=== PATIENT | female | born 1950 | race Caucasian/White ===

== ENCOUNTER 2016-09-10 10:02 | Emergency (ER) | payer OTHER, MEDICARE ==
[2016-09-10 10:10] VITALS: BMI 29.2
--- NOTE | 2016-09-10 10:11 | ED PDOC ---
Arrival/HPI - General Chief Complaint: Lower Extremity Problem/Injury Time Seen by Provider: 09/10/16 10:10 Historian: Patient - History of Present Illness Narrative History of Present Illness (Text): 09/10/16 10:10 66 y/o female, pmh including htn/hyperlipidemia/dm, nkda, last tetanus over 10 years ago, c/o lt. foot big toe pain x 1 day. Pt. stated that she has no fall or trauma, feels like the blister is popped on the toe, very minimal pain, not sure last [id number], from [place], no night sweat, no calf pain, no numbness or tingling, no thigh pain, no palpitation, no other medical or psychological complaints. Past Medical History - Provider Review Nursing Documentation Reviewed: Yes - Travel History If Yes, travel location?: [facility] - Infectious Disease Hx of Infectious Diseases: None - Tetanus Immunization Tetanus Immunization: Unknown - Reproductive Menopause: Yes - Cardiac Hx Hypertension: Yes - Pulmonary Hx Respiratory Disorders: No - Neurological Hx Neurological Disorder: No - Renal Hx Renal Disorder: No - Endocrine/Metabolic Hx Diabetes Mellitus Type 2: Yes - Hematological/Oncological Other/Comment: Hx of blood transfusion during one of the pregnancies. - Integumentary Hx Dermatological Disorder: No - Musculoskeletal/Rheumatological Hx Arthritis: Yes (knees,ankles.) Hx Fractures: Yes (Left ankle.) - Gastrointestinal Hx Gastrointestinal Disorders: No - Psychiatric Hx Psychophysiologic Disorder: No Hx Anxiety: No Hx Bipolar Disorder: No Hx Depression: No Hx Emotional Abuse: No Hx Hallucinations: No Hx Panic Disorder: No Hx Post Traumatic Stress Disorder: No Hx Psychosis: No Hx Physical Abuse: No Hx Schizophrenia: No Hx Sexual Abuse: No Hx Substance Use: No - Past Surgical History Past Surgical History: No Previous - Surgical History Hx Tubal Ligation: Yes (35 yrs ago.) - Anesthesia Hx Anesthesia: No Hx Anesthesia Reactions: No Hx Malignant Hyperthermia: No - Suicidal Assessment Feels Threatened In Home Enviroment: No Family/Social History - Physician Review Nursing Documentation Reviewed: Yes Family/Social History: Unknown Family HX Smoking Status: Never Smoked Hx Alcohol Use: No Hx Substance Use: No Hx Substance Use Treatment: No Allergies/Home Meds Allergies/Adverse Reactions: Allergies No Known Allergies Allergy (Verified 09/10/16 10:09) Home Medications: Home Meds Medication Instructions Recorded Confirmed Glipizide/Metformin HCl 1 tab PO BID 08/04/13 09/10/16 [Glipizide/Metformin HCl 2.5 mg-500 mg] Metoprolol Succinate 50 mg PO BID 08/04/13 09/10/16 Atorvastatin [Lipitor] 40 mg PO DAILY 05/11/14 09/10/16 Lisinopril [Zestril] 5 mg PO DAILY 09/10/16 09/10/16 Pioglitazone [Actos] 30 mg PO DAILY 09/10/16 09/10/16 Review of Systems - Review of Systems Constitutional: absent: Fatigue, Fevers Eyes: absent: Vision Changes ENT: absent: Hearing Changes Respiratory: absent: SOB, Cough Cardiovascular: absent: Chest Pain Gastrointestinal: absent: Abdominal Pain, Diarrhea, Nausea, Vomiting Musculoskeletal: absent: Back Pain, Joint Swelling, Myalgias Skin: Rash. absent: Pruritis, Skin Lesions, Laceration, Abscess, Ulcer, Cellulitis Neurological: absent: Headache, Dizziness, Focal Weakness Physical Exam Vital Signs Temp Pulse Resp BP Pulse Ox 09/10/16 10:05 97.9 F 85 18 154/72 H 99 Temperature: Afebrile Blood Pressure: Hypertensive Pulse: Regular Respiratory Rate: Normal Appearance: Positive for: Well-Appearing, Non-Toxic, Comfortable Pain Distress: Mild Mental Status: Positive for: Alert and Oriented X 3 - Systems Exam Head: Present: Atraumatic, Normocephalic Pupils: Present: PERRL Extroacular Muscles: Present: EOMI Conjunctiva: Present: Normal Mouth: Present: Moist Mucous Membranes Neck: Present: Normal Range of Motion Respiratory/Chest: Present: Clear to Auscultation, Good Air Exchange. No: Respiratory Distress, Accessory Muscle Use Cardiovascular: Present: Regular Rate and Rhythm, Normal S1, S2. No: Murmurs Abdomen: Present: Normal Bowel Sounds. No: Tenderness, Distention, Peritoneal Signs Back: Present: Normal Inspection Upper Extremity: Present: Normal Inspection. No: Cyanosis, Edema Lower Extremity: Present: Normal Inspection, Other (Lt. foot: medial aspect of the toe visible skin gloved off appear to the skin tearing from the blister with non-infected/nonerythematous wound approx. [id number] with no visible puncture or laceration wound, FROM without limitation, sensation intact, motor 5 /5, +DPPT pulses, capillary refill< 2 seconds, neurovascular intact. ). No: Edema Neurological: Present: GCS=15, Speech Normal, Motor Func Grossly Intact, Gait Normal, Memory Normal Skin: Present: Warm, Dry, Normal Color. No: Rashes Psychiatric: Present: Alert, Oriented x 3, Normal Insight, Normal Concentration Medical Decision Making ED Course and Treatment: 09/10/16 10:24 -tdap/keflex/bactrim ds -irrigated with saline, clean with betadine, bacitracin and gauze dressing, cane -case discussed with Dr. rodriguez and agreed on the outpatient grid maker follow up. -Discharge home with keflex, bactrim ds, bacitracin oinment, cane, take tylenol for pain as needed, check the feet every single day during the showering as your sensation on the feet might be decreased due to your diabete, follow up with your own pmd and grid maker/wound care center within 2 days, return to the ER for any new or worsening signs or symptom. - RAD Interpretation Radiology Orders: 09/10/16 10:11 FOOT LEFT 3 VIEWS ROUTINE [RAD] Stat FOOT LEFT GREAT TOE ROUTINE [RAD] Stat - PA / HOME ATTENDANT / Resident Statement MD/DO has reviewed & agrees with the documentation as recorded. Disposition/Present on Arrival - Present on Arrival Any Indicators Present on Arrival: No History of DVT/PE: No History of Uncontrolled Diabetes: No Urinary Catheter: No History of Decub. Ulcer: No History Surgical Site Infection Following: None - Disposition Have Diagnosis and Disposition been Completed?: Yes Diagnosis: Diabetes, Blister Disposition: HOME/ ROUTINE Disposition Time: 10:26 Patient Plan: Discharge Condition: GOOD Additional Instructions: Discharge home with keflex, bactrim ds, bacitracin oinment, cane, take tylenol for pain as needed, check the feet every single day during the showering as your sensation on the feet might be decreased due to your diabete, follow up with your own pmd and grid maker/wound care center within 2 days, return to the ER for any new or worsening signs or symptom. Prescriptions: Bacitracin Ointment [Bacitracin] 1 appful TOP BID #15 g Cephalexin [Keflex] 500 mg PO QID #40 capsule Sulfamethoxazole/Trimethoprim [Bactrim Ds Tablet] 1 each PO BID #20 tablet Referrals: Darell Bosch DPM [Staff Provider] - Follow up with primary [facility] [place] - Follow up with primary Forms: WORK NOTE
[2016-09-10] MEDS ORDERED: Tmp-Smz 800 mg-160 mg DS Tab PO STA (10:20)
[2016-09-10] MEDS ORDERED: TDAP Vaccine 0.5 mL Syr IM ONE (10:20)
[2016-09-10 11:01] VITALS: BP 132/82; PULSE 75; RESP 19; TEMP 98; O2SAT 98
== END 2016-09-10 11:01 | disposition home or self-care (01) ==
LOC: ED 10:02
DX: E11.9 Type 2 diabetes mellitus without complications (principal); S90.422A Blister (nonthermal), left great toe, initial encounter; X58.XXXA Exposure to other specified factors, initial encounter; E78.5 Hyperlipidemia, unspecified; I10 Essential (primary) hypertension; Z23 Encounter for immunization

== ENCOUNTER 2016-09-12 09:56 | Emergency (ER) | payer OTHER, MEDICARE ==
[2016-09-12 09:56] VITALS: BMI 29.2
[2016-09-12 10:19] VITALS: TEMP 97.6
--- NOTE | 2016-09-12 10:25 | ED PDOC ---
Arrival/HPI - General Time Seen by Provider: 09/12/16 10:18 Historian: Patient - History of Present Illness Narrative History of Present Illness (Text): 09/12/16 10:19 66 y/o female, pmh including htn/hyperlipidemia/dm, nkda, here for the wound check on the toe which she had blistered and ruptured which I placed her on the oral keflex and bactrimds with the dressing 2 days ago. I advised her to see the public records officer which she didn't get the chance to see and here for the wound check and follow up. Pt. stated that the wound has been healing well and dry, no fever or chills, no headache or night sweat, no dizziness, no palpitation, no other medical or psychological complaints. Past Medical History - Provider Review Nursing Documentation Reviewed: Yes - Infectious Disease Hx of Infectious Diseases: None - Tetanus Immunization Tetanus Immunization: Unknown - Reproductive Menopause: Yes - Cardiac Hx Hypertension: Yes - Pulmonary Hx Respiratory Disorders: No - Neurological Hx Neurological Disorder: No - Renal Hx Renal Disorder: No - Endocrine/Metabolic Hx Diabetes Mellitus Type 2: Yes - Hematological/Oncological Other/Comment: Hx of blood transfusion during one of the pregnancies. - Integumentary Hx Dermatological Disorder: No - Musculoskeletal/Rheumatological Hx Arthritis: Yes (knees,ankles.) Hx Fractures: Yes (Left ankle.) - Gastrointestinal Hx Gastrointestinal Disorders: No - Psychiatric Hx Psychophysiologic Disorder: No Hx Anxiety: No Hx Bipolar Disorder: No Hx Depression: No Hx Emotional Abuse: No Hx Hallucinations: No Hx Panic Disorder: No Hx Post Traumatic Stress Disorder: No Hx Psychosis: No Hx Physical Abuse: No Hx Schizophrenia: No Hx Sexual Abuse: No Hx Substance Use: No - Past Surgical History Past Surgical History: No Previous - Surgical History Hx Tubal Ligation: Yes (35 yrs ago.) - Anesthesia Hx Anesthesia: No Hx Anesthesia Reactions: No Hx Malignant Hyperthermia: No - Suicidal Assessment Feels Threatened In Home Enviroment: No Family/Social History - Physician Review Nursing Documentation Reviewed: Yes Family/Social History: Unknown Family HX Smoking Status: Never Smoked Hx Alcohol Use: No Hx Substance Use: No Hx Substance Use Treatment: No Allergies/Home Meds Allergies/Adverse Reactions: Allergies No Known Allergies Allergy (Verified 09/12/16 10:19) Home Medications: Home Meds Medication Instructions Recorded Confirmed Glipizide/Metformin HCl 1 tab PO BID 08/04/13 09/12/16 [Glipizide/Metformin HCl 2.5 mg-500 mg] Metoprolol Succinate 50 mg PO BID 08/04/13 09/12/16 Atorvastatin [Lipitor] 40 mg PO DAILY 05/11/14 09/12/16 Lisinopril [Zestril] 5 mg PO DAILY 09/10/16 09/12/16 Pioglitazone [Actos] 30 mg PO DAILY 09/10/16 09/12/16 Review of Systems - Review of Systems Constitutional: absent: Fatigue, Fevers Eyes: absent: Vision Changes ENT: absent: Hearing Changes Respiratory: absent: SOB, Cough Cardiovascular: absent: Chest Pain Gastrointestinal: absent: Abdominal Pain, Nausea, Vomiting Skin: Rash. absent: Pruritis, Skin Lesions, Laceration, Abscess, Cellulitis Neurological: absent: Headache, Dizziness Physical Exam Vital Signs Reviewed: Yes Vital Signs Temp Pulse Resp BP Pulse Ox 09/12/16 10:16 97.6 F 77 17 125/67 99 Temperature: Afebrile Blood Pressure: Normal Pulse: Regular Respiratory Rate: Normal Appearance: Positive for: Well-Appearing, Non-Toxic, Comfortable Pain Distress: None Mental Status: Positive for: Alert and Oriented X 3 - Systems Exam Head: Present: Atraumatic, Normocephalic Pupils: Present: PERRL Extroacular Muscles: Present: EOMI Conjunctiva: Present: Normal Mouth: Present: Moist Mucous Membranes Neck: Present: Normal Range of Motion Respiratory/Chest: Present: Clear to Auscultation, Good Air Exchange. No: Respiratory Distress, Accessory Muscle Use Cardiovascular: Present: Regular Rate and Rhythm, Normal S1, S2. No: Murmurs Abdomen: Present: Normal Bowel Sounds. No: Tenderness, Distention, Peritoneal Signs Back: Present: Normal Inspection Upper Extremity: Present: Normal Inspection. No: Cyanosis, Edema Lower Extremity: Present: Normal Inspection, Other (Lt. foot medial aspect of the toe visible drying up abrasion wound, no cellluilitis or streaking, wound healing well and dry, +DPPT pulses, capillary refill< 2 seconds, neurovascular intact. ). No: Edema Neurological: Present: GCS=15, CN II-XII Intact, Speech Normal Skin: Present: Warm, Dry, Normal Color. No: Rashes Psychiatric: Present: Alert, Oriented x 3, Normal Insight, Normal Concentration Medical Decision Making ED Course and Treatment: 09/12/16 10:20 -old dressing removed, wound healing well and dry, no signs of infection, irrigated with saline 250cc, clean with betadine, xerofoam and gauze dressing, plan is continue the antibiotic and ask her to see the public records officer. -Discharge home with education on follow up with your own public records officer and pmd within 2 days, return to the ER for any new or worsening signs or symptoms. - PA / CASHIER PAYMENTS RECEIVED / Resident Statement MD/DO has reviewed & agrees with the documentation as recorded. Disposition/Present on Arrival - Present on Arrival Any Indicators Present on Arrival: No History of DVT/PE: No History of Uncontrolled Diabetes: No Urinary Catheter: No History of Decub. Ulcer: No History Surgical Site Infection Following: None - Disposition Have Diagnosis and Disposition been Completed?: Yes Diagnosis: Visit for wound check, Dressing change Disposition: HOME/ ROUTINE Disposition Time: 10:25 Patient Plan: Discharge Condition: GOOD Additional Instructions: -Discharge home with education on follow up with your own public records officer and pmd within 2 days, return to the ER for any new or worsening signs or symptoms. Referrals: Araceli Cooney, [Primary Care Provider] - Follow up with primary Darell Bosch DPM [Staff Provider] - Follow up with primary Forms: WORK NOTE
[2016-09-12 10:26] VITALS: RESP 17
[2016-09-12 11:15] VITALS: BP 128/65; PULSE 73; O2SAT 98
== END 2016-09-12 11:15 | disposition home or self-care (01) ==
LOC: ED 09:56
DX: Z51.89 Encounter for other specified aftercare (principal); Z48.00 Encounter for change or removal of nonsurgical wound dressing; E78.5 Hyperlipidemia, unspecified; I10 Essential (primary) hypertension; E11.9 Type 2 diabetes mellitus without complications